=== PATIENT | female | born 1980 | race Two or more races ===

== ENCOUNTER 2022-06-08 07:46 | Emergency (ER) | payer OTHER ==
[~2022-06-08] VITALS: Ht 165.1 cm; Wt 97.5 kg
[~2022-06-08 07:46] MED LIST: NO REPORTABLE MEDS
[2022-06-08] MEDS ORDERED: ONDANSETRON HCL/PF 4 MG/2 ML VIAL ONE (09:28)
[2022-06-08] MEDS ORDERED: MORPHINE SULFATE INJ 2 MG/ML DISP.SYRIN ONE ×2 (09:28→13:35)
[2022-06-08] MEDS ORDERED: ONDANSETRON HCL/PF 4 MG/2 ML VIAL IVP ONE (09:30)
[2022-06-08] MEDS ORDERED: MORPHINE SULFATE INJ 2 MG/ML DISP.SYRIN IV ONE ×2 (09:30→13:30)
[2022-06-08] MEDS ORDERED: diphenhydrAMINE HCL 25 MG CAPSULE PO ONE ×2 (09:30→14:00)
[2022-06-08] MEDS ORDERED: diphenhydrAMINE HCL 25 MG CAPSULE ONE ×2 (09:33→13:41)
--- NOTE | 2022-06-08 09:49 | NUR ---
IV ESTABLISHED L HAND 20G
--- NOTE | 2022-06-08 09:55 | NUR ---
PT UNABLE TO PROVIDE URINE SAMPLE AT THIS TIME.
--- NOTE | 2022-06-08 09:56 | NUR ---
PT SIGNED WAIVER. PER PT, SHE HAD TUBAL LIGATION DONE. PT TAKEN TO RADIOLOGY FOR CT SCAN.
--- NOTE | 2022-06-08 10:13 | NUR ---
PT RETURNED FROM RADIOLOGY
--- NOTE | 2022-06-08 11:55 | NUR ---
FOLLOWED UP RESULTS OF SCAN W/ RADIOLOGY
--- NOTE | 2022-06-08 12:52 | NUR ---
followed-up results (again) w/ radiology for ct scans
[2022-06-08] MEDS ORDERED: ACET-2605 PO (13:46)
[2022-06-08] MEDS ORDERED: CYCL10TA9 PO (13:46)
--- NOTE | 2022-06-08 14:27 | NUR ---
IV removed. Catheter intact and site benign. Pressure and 4x4 applied to site. No bleeding noted.
[2022-06-08 14:58] VITALS: BP 124/73
--- NOTE | 2022-06-08 14:58 | NUR ---
Patient discharged to home in stable condition. Written and verbal after care instructions given. Patient verbalizes understanding of instruction.
== END 2022-06-08 15:08 | disposition home or self-care (01) ==
LOC: ER 07:47
DX: S19.80XA Other specified injuries of unspecified part of neck, initial encounter (principal); M54.50 Low back pain, unspecified; Z88.0 Allergy status to penicillin; V89.2XXA Person injured in unspecified motor-vehicle accident, traffic, initial encounter; W22.11XA Striking against or struck by driver side automobile airbag, initial encounter; Y93.89 Activity, other specified; Y92.411 Interstate highway as the place of occurrence of the external cause; Y99.8 Other external cause status
CPT/HCPCS: 99284; 72125; 96374; 96375; 96376; 70450; 74176; Q0163 ×2; J2405; J2270 ×2